=== PATIENT | female | born 1955 | race Caucasian/White ===

== ENCOUNTER 2018-08-19 01:08 | Outpatient (CLI) | payer OTHER, SELFPAY ==
--- NOTE | 2018-08-19 08:18 | DI.US_ITS ---
SYMPTOM/DIAGNOSIS: NAUSEA, FAMILY H/O AAA ABDOMEN ULTRASOUND: Comparison is made with CT dated 12 November 2015 and renal ultrasound dated 14 December 2014 The maximal transverse dimension of the abdominal aorta is 3.2 cm proximally. The aorta tapers normally. Some calcification is seen distally. There is no significant mural thrombus. Stones are again noted in the gallbladder. There are bilateral renal cysts. There is no evidence of hydronephrosis. The liver and spleen are normal in size and echogenicity. The pancreas is unremarkable. IMPRESSION: Cholelithiasis and bilateral renal cysts. There is no evidence of acute cholecystitis or abdominal aortic aneurysm.
[2018-08-19 09:26] LABS: HCT 41.6 % (36.0-46.0); HGB 14.1 g/dL (12.0-15.5); Mean Corp. HGB Concentration 33.9 g/dL (32.0-36.0); Mean Corpuscular Hemoglobin 30.1 pg (27.0-33.0); Mean Corpuscular Volume 88.9 fL (80-95); Mean Platelet Volume 8.8 fL (8.0-11.0); Platelet Count 314 x1000/uL (130-400); RBC 4.68 m/cumm (4.00-5.20); RBC Distribution Width 13.3 % (11.7-14.6); White Blood Cell Count 5.77 k/cumm (4.4-10.8)
[2018-08-19 10:24] LABS: ALT 16 U/L (12-78); AST 12 U/L (15-37); Alkaline Phosphatase 73 U/L (46-116); Anion Gap 9.9 mmol/L (3-11); BUN 9 mg/dL (7-18); Bilirubin, Total 0.7 mg/dL (0.2-1.0); CO2 29.1 mmol/L (21.0-32.0); CREATININE 0.72 mg/dL (0.55-1.02); Chloride 102 mmol/L (98-107); Glucose 77 mg/dL (70-100); Potassium 4.1 mmol/L (3.5-5.1); Sodium 141 mmol/L (136-145); Total Protein 7.1 g/dL (6.4-8.2)
== END 2018-08-19 01:28 ==
PROVIDERS: PCP Nurse Practitioner Family; Visit Provider Nurse Practitioner Family
DX: R10.9 Unspecified abdominal pain (principal); K80.20 Calculus of gallbladder without cholecystitis without obstruction; N28.1 Cyst of kidney, acquired; Z82.49 Family history of ischemic heart disease and other diseases of the circulatory system
CPT/HCPCS: 36415; 80053; 85027; 76700

== ENCOUNTER 2018-09-23 01:27 | Outpatient (CLI) | payer MEDICARE, OTHER, SELFPAY ==
--- NOTE | 2018-09-23 13:51 | DI.MAMMO_ITS ---
SYMPTOM/DIAGNOSIS: SCREENING, ANNUAL EXAM, Z00.00 MAMMOGRAMS: Mammograms were interpreted according to the usual protocol including computer analysis with CAD system, tomosynthesis and C view imaging. Comparison is made with exams from [id number]. The breasts are composed of scattered fibroglandular densities, breast density, Category C. No suspicious masses or suspicious microcalcifications are seen. There has been no significant change. IMPRESSION: Category 1C, negative mammogram. Yearly screening mammography is recommended. [facility] ASSESSMENT OF FINDINGS: Negative. Category 1. Patient will receive a letter notifying them of these results. Bi-RADS category C. The breasts are heterogeneously dense, which may obscure small masses.
== END 2018-09-23 01:47 ==
PROVIDERS: PCP Nurse Practitioner Family; Visit Provider Nurse Practitioner Family
DX: Z12.31 Encounter for screening mammogram for malignant neoplasm of breast (principal)
CPT/HCPCS: 77063; 77067

== ENCOUNTER 2019-09-22 10:55 | Outpatient (REF) | payer MEDICARE, BC, SELFPAY ==
[2019-09-22 12:01] LABS: HGB 14.2 g/dL (12.0-15.5); Mean Corp. HGB Concentration 33.8 g/dL (32.0-36.0); Mean Corpuscular Hemoglobin 30.1 pg (27.0-33.0); Mean Corpuscular Volume 89.2 fL (80-95); Mean Platelet Volume 9.3 fL (8.0-11.0); Platelet Count 330 x1000/uL (130-400); RBC 4.71 m/cumm (4.00-5.20); White Blood Cell Count 5.88 k/cumm (4.4-10.8)
[2019-09-22 12:10] LABS: ALT 19 U/L (14-59); AST 16 U/L (15-37); Albumin 3.9 g/dL (3.4-5.0); Alkaline Phosphatase 62 U/L (46-116); Anion Gap 7.4 mmol/L (3-11); BUN 9 mg/dL (7-18); Bilirubin, Total 0.5 mg/dL (0.2-1.0); CO2 28.6 mmol/L (21.0-32.0); CREATININE 0.68 mg/dL (0.55-1.02); Calcium 8.9 mg/dL (8.5-10.1); Calculated LDL 191 mg/dL; Chloride 105 mmol/L (98-107); Cholesterol 270 mg/dL (<200); Glucose 96 mg/dL (74-106); HDL Cholesterol 54 mg/dL (40-60); Potassium 4.4 mmol/L (3.5-5.1); Sodium 141 mmol/L (136-145); Total Protein 7.2 g/dL (6.4-8.2); Triglyceride 127 mg/dL (<150)
== END 2019-09-22 11:15 ==
LOC: NCHCN 10:55
PROVIDERS: PCP Nurse Practitioner Family; Visit Provider Nurse Practitioner Family
DX: E78.5 Hyperlipidemia, unspecified (principal)
CPT/HCPCS: 80053; 80061; 85027

== ENCOUNTER 2020-11-25 10:10 | Emergency (ER) | payer MEDICARE, BC, SELFPAY ==
[2020-11-25] VITALS (35 sets, daily range): BP systolic 120–190; BP diastolic 76–112; PULSE 67–88; RESP 11–27; TEMP 36.6; O2SAT 94–100
--- NOTE | 2020-11-25 10:00 | RT.EKG_ITS ---
APPROVED REPORT Exam: Resting ECG Patient Location: E HR:75 bpm ECG Measurements Heart Rate 75 AXIS HI 188 P 66 QRSd 80 QRS 5 QT 368 T 50 QTc 411 Conclusion Sinus rhythm...normal P axis, V-rate 60- 99
--- NOTE | 2020-11-25 10:45 | DI.CT_ITS ---
EXAM: CT BRAIN NECK CTA CLINICAL HISTORY: right visual loss and speech deficit intermittent. TECHNIQUE: Imaging Protocol: Axial CT angiography was performed with multi-slice acquisition and mu lti-planar and/or 3D reconstructions. CONTRAST MATERIAL: Intravenous: Omnipaque 350 Contrast volume:structured data in ml COMPARISON: CT ABD PELVIS WITH CONTRAST from 11/12/2015 FINDINGS: CT brain: There are no skull fractures nor fluid in the visualized paranasal sinuses and mastoid air cells. There is abnormal hyperdensity in the gyri of the left occipital lobe consistent with intra-axial hemorrhage which is probably slightly more so than petichial. No other areas of intra-axial hemorrhage. There is no blood within the ventricular system nor within the basal cisterns. CTA Neck W: Aortic arch anatomy: Conventional. Anterior circulation: Both common carotid arteries are patent with no evidence of significant stenosis in these vessels. A lso no significant stenosis at the carotid bifurcations and proximal internal carotid arteries and basil th internal carotid arteries of exhibit normal caliber in in the neck and skull base-carotid canals. Posterior circulation: Both vertebral arteries originated conventional fashion off the subclavian arteries. There is no sub clavian artery stenosis proximal to the vertebral artery takeoff points and there is no evidence of s tenosis at the origin of the vertebral arteries off of the subclavians. Both vertebral arteries asce nd with normal and approximately equal luminal diameters within the foramen transversarium. No evide nce of intraluminal thrombus nor dissection of these vessels. At the skull base both vertebral arter ies contribute to the formation of the basilar artery. CTA Brain W: Anterior circulation: Both internal carotid arteries are patent in the skull base-carotid canals as well as within the cave rnous sinuses. Both ophthalmic arteries are patent and originated conventional fashion off of the in tracavernous internal carotid arteries. The supraclinoid aspect of these vessels are patent and kenneth neurysmal. Both middle cerebral arteries are patent out to the sylvian fissure branches. No intralu mariana thrombus nor aneurysms. Both A1 segments are patent as are the anterior cerebral arteries. Th ere is no evidence of aneurysm at the level of the anterior communicating artery. Posterior circulation: Basilar artery is formed by both vertebral arteries at the skull base. Basilar artery ascends with n ormal luminal diameter and no evidence of intraluminal thrombus. Distally it gives off bilateral sup erior cerebellar arteries and above this level terminates as patent bilateral posterior cerebral wilfredo karen. In the left occipital lobe there are too numerous vessels which are consistent with probable vascula r malformation. IMPRESSION: 1. There is suggestion of vascular malformation and possible hemorrhage evident in the left occipital lobe. 2. No evidence of significant atherosclerotic disease in the carotid arteries and vertebral arteries in the neck. 3. No evidence of intraluminal thrombus within the intracranial arteries. No obvious aneurysms. Findings discussed by phone with the ER physician following completion of the study 11/25/2020 RADIATION DOSE DELIVERED: 1,767.88mGy.cm Total DLP DATA REPOSITORY: All CT scans at this facility are submitted to the National Radiology Data Registry (NRDR) Dose Index Registry (DIR) with the [employer] (A[employer]). RADIATION OPTIMIZATION: All CT scans at this facility use at least one of these dose optimization te chniques: automated exposure control; mA and/or kV adjustment per patient size (includes targeted exa ms where dose is matched to clinical indication); or iterative reconstruction.
--- NOTE | 2020-11-25 10:45 | DI.CT_ITS ---
EXAM: CT THORAX CTA CLINICAL HISTORY: intermittent chest pressure, fam hx aneurysm. TECHNIQUE: Imaging Protocol: CT angiography of the chest was performed using pulmonary embolus wan col. Multi planar reconstructions were performed. CONTRAST MATERIAL: Intravenous: Omnipaque 350 Contrast volume: 100 cc COMPARISON: CT CT BRAIN NECK CTA from 11/25/2020 FINDINGS: CHEST: PULMONARY ARTERIES: There are no intraluminal filling defects to suggest acute pulmonary emboli. LUNGS: No evidence of pulmonary infarction. Mild increased markings in the left lower lobe posterior basal segment and lingular segment of the left lung. No focal findings in the opposite-right lung. There are no pleural effusions. No significant focal findings in the trachea and mainstem bronchus. MEDIASTINUM: There is no hilar nor mediastinal adenopathy. Multiple nodules are noted in the thyroid gland. CARDIAC: Heart size is normal. There is no pericardial effusion.Caliber of the thoracic aorta is wit hin normal limits. There is no evidence of shift of the interventricular septum. PARTIALLY VISUALIZED UPPERMOST ABDOMEN: Partially included cysts seen in the left kidney. OSSEOUS: Thoracic scoliosis convex right. No lytic osseous lesions identified. IMPRESSION: 1. No evidence of acute pulmonary emboli. No evidence of pulmonary infarction.No pleural effusions. 2. Mild increased markings posterior basal segment left lower lobe and lingular segment left lung bas e. No focal right lung findings. No pleural effusions. No intrathoracic adenopathy. 3. Multiple nodules are incidentally noted in the thyroid gland. Scoliosis. RADIATION DOSE DELIVERED: LINK-TO-SR Total DLP DATA REPOSITORY: All CT scans at this facility are submitted to the National Radiology Data Registry (NRDR) Dose Index Registry (DIR) with the [employer] (ACR). RADIATION OPTIMIZATION: All CT scans at this facility use at least one of these dose optimization te chniques: automated exposure control; mA and/or kV adjustment per patient size (includes targeted exa ms where dose is matched to clinical indication); or iterative reconstruction.
[2020-11-25 10:49] LABS: Abs Immature Grans 0.02 10^3/uL (0.0-0.06); Absolute Basophil Count 0.07 10^3/uL (0.0-0.2); Absolute Eosinophil Count 0.07 10^3/uL (0.0-0.7); Absolute Lymphocyte Count 1.81 10^3/uL (1.2-3.4); Absolute Monocyte Count 0.48 10^3/uL (0.1-0.8); Absolute Neutrophil Count 3.96 10^3/uL (1.2-6.7); Basophils % 1.1; Eosinophils % 1.1; HCT 44.2 % (36.0-46.0); HGB 14.8 g/dL (11.2-15.7); Immature Grans % 0.3; Lymphocytes % 28.2; MCH 30.3 pg (27.0-33.0); MCHC 33.5 % (32.0-36.0); MCV 90.4 fL (80-95); MPV 8.8 fL (8.0-11.0); Monocytes % 7.5; Neutrophils % 61.8; Nucleated RBC 0 %; Platelet Count 321 10^3/uL (130-400); RBC 4.89 10^6/uL (3.93-5.22); RDW 12.7 % (11.7-14.6); RDW-SD 41.9 fL; WBC 6.41 10^3/uL (4.4-10.8)
[2020-11-25 11:03] LABS: ALT 21 U/L (14-59); AST 14 U/L (15-37); Albumin 4.1 g/dL (3.4-5.0); Alkaline Phosphatase 69 U/L (46-116); Anion Gap 5.9 mmol/L (3-11); BUN 11 mg/dL (7-18); Bilirubin, Total 0.6 mg/dL (0.2-1.0); CO2 30.1 mmol/L (21.0-32.0); CREATININE 0.7 mg/dL (0.55-1.02); Calcium 8.6 mg/dL (8.5-10.1); Chloride 104 mmol/L (98-107); Glucose 114 mg/dL (74-106); Potassium 3.6 mmol/L (3.5-5.1); Sodium 140 mmol/L (136-145); Total Protein 7.9 g/dL (6.4-8.2); Troponin I < 0.05 ng/mL (<0.06)
[2020-11-25] MEDS: Omnipaque 350 MG/ML 100 ML BTL IJ (11:25)
--- NOTE | 2020-11-25 11:28 | ED.GENADUL_ITS ---
Discharge Plan Disposition Patient Disposition: [facility] Condition: Critical Discharge Details Clinical Impression: Intracranial hemorrhage, Multiple thyroid nodules Primary Care Provider: David Valles ED Provider: Mike Thomas Home Meds and New Rx's Prescriptions: No Action No Known Home Meds RF: 0 Discharge Data Discharge Date/Time-TO BE ENTERED AT DEPARTURE: 11/25/20 14:09 Medical Decision Making 1135??65-year-old female presents from [facility] with intermittent right visual loss and speech deficit with headache over the past 1 week. Patient also with intermittent chest heaviness. She does not currently have any chest pain. Patient does have mild headache. Of note, patient does have positive family history of aneurysms in sibling and parent. Concern for intracranial aneurysm versus TIA versus other. Plan to obtain CT of the head and CTA of the head and neck. Screening ECG was reviewed and interpreted by me: Please see report, sinus rhythm 75 bpm, nondiagnostic. Consider aneurysm of the chest. Plan to obtain CTA of the chest. 1210 -- CT of the brain interpreted by radiology: Question left occipital hemorrhage CTA brain/neck interpreted by radiology: IMPRESSION: 1. There is suggestion of vascular malformation and possible hemorrhage evident in the left occipital lobe. 2. No evidence of significant atherosclerotic disease in the carotid arteries and vertebral arteries in the neck. 3. No evidence of intraluminal thrombus within the intracranial arteries. No obvious aneurysms. CTA of the chest interpreted by radiology: IMPRESSION: 1. No evidence of acute pulmonary emboli. No evidence of pulmonary infarction.No pleural effusions. 2. Mild increased markings posterior basal segment left lower lobe and lingular segment left lung base. No focal right lung findings. No pleural effusions. No intrathoracic adenopathy. 3. Multiple nodules are incidentally noted in the thyroid gland. Scoliosis. 1224 --I spoke with neurosurgeon production operations manager as well as Dr. Cruz, emergency physician, discussed ED presentation and course, patient will be excepted to the emergency department. Keppra 1 g was recommended. Blood pressure control recommended she maintain systolic blood pressure less than 140. Patient currently at goal blood pressure. HPI General Mode of arrival: ambulatory . Date/Time Provider Initiated Documentation: 11/25/20 10:22 . Limitations to Documentation: no limitations . Information obtained by: patient . HPI Narrative: 65-year-old female presents from [facility] with chief complaint of visual loss. Patient notes that she had right eyes visual loss 6 days ago. Visual loss was sudden onset, lasted approximately 30 minutes, was not complete loss of vision. She also had some mild word finding difficulties at that time as well that resolved. She did have mild frontal headache. The following day she had another episode of more severe frontal headache and more severe visual loss. She denies any speech deficits that day. Patient also notes that she experiences intermittent chest heaviness over the past few weeks. She does not have any this pain now or today. Patient does note that she bumped her head on car door as she was rushing to get into the car earlier in the day 6 days before. Related Data Home Medications Medication Instructions Recorded Confirmed Unknown [No Known Home Meds] 11/25/20 11/25/20 Allergies Allergy/AdvReac Type Severity Reaction Status Date / Time Dust Allergy Mild Uncoded 11/25/20 10:28 General Stated Complaint: GenMedical CISCO: 2 Review of Systems All systems reviewed & are unremarkable except as noted in HPI and below Constitutional Constitutional: Reports fatigue, Denies fever(s) and Reports headache(s) ENT Ears, Nose, Mouth, and Throat: Reports headache(s) Neurologic Neurologic: Reports as per HPI, Reports headache(s) and Denies sensory deficit Endocrine Endocrine: Reports fatigue PFSH Social History Smoking/Tobacco Use Status: Never Smoking risk assessment performed?: Yes Alcohol Intake: current Alcohol Intake frequency: a few times a month Alcohol type: wine Drug use: Never Substance use type: does not use Do you feel safe at home: Yes Do you feel safe in your relationship?: Yes Exam Const General: cooperative and no acute distress [facility] Head: normocephalic and atraumatic Mouth: moist mucous membranes Eyes Conjunctivae: normal conjunctivae Sclera: normal sclerae EOM: EOM intact bilaterally Neck Neck: trachea midline Resp Auscultation: clear to auscultation bilaterally, no rales, no rhonchi and no wheezes Cardio Jugular venous pressure: no JVD Rate: regular rate and not tachycardic Rhythm: regular rhythm GI Palpation: soft, not firm, no guarding, no masses, not rigid and nontender Skin General skin exam: no rashes or lesions noted Neuro General: patient alert, patient awake, patient oriented x3 and tone normal Cranial Nerves: CN's II-XI intact bilaterally and PERRL Cognition: normal cognition Speech: speech normal Motor: strength 5/5 throughout Sensory Exam: no sensory deficits noted Extrem General: no edema Psych Appearance: grossly normal Mental Status: mental status grossly normal Course Vital Signs Vital signs: Vital Signs Temperature 36.6 C 11/25/20 10:17 Pulse 78 11/25/20 10:17 Respiratory Rate 16 11/25/20 10:17 Blood Pressure 190/92 H 11/25/20 10:17 Pulse Oximetry 100 11/25/20 10:17 Temperature 36.6 C 11/25/20 10:17 Temperature Source Temporal Artery Scan 11/25/20 10:17 Pulse 67 11/25/20 10:31 Pulse 76 11/25/20 10:40 Respiratory Rate 18 11/25/20 11:13 Respiratory Effort Non-Labored 11/25/20 11:13 Respiratory Depth Normal 11/25/20 11:13 Respiratory Pattern Normal 11/25/20 11:13 Blood Pressure 155/85 H 11/25/20 10:31 Blood Pressure Mean 103 11/25/20 10:31 Blood Pressure Position Sitting 11/25/20 10:17 Pulse Oximetry 97 11/25/20 10:40 Oxygen Delivery Method Room Air 11/25/20 10:17 Oxygen Flow Rate 0 11/25/20 10:17 Pain Level 0 11/25/20 10:17 Lab/Test Results Lab/Test Results: Laboratory Tests Range/Units 11/25/20 11/25/20 10:20 10:20 WBC (4.4-10.8) 10^3/uL 6.41 RBC (3.93-5.22) 10^6/uL 4.89 Hgb (11.2-15.7) g/dL 14.8 Hct (36.0-46.0) % 44.2 MCV (80-95) fL 90.4 MCH (27.0-33.0) pg 30.3 MCHC (32.0-36.0) % 33.5 RDW (11.7-14.6) % 12.7 Plt Count (130-400) 10^3/uL 321 MPV (8.0-11.0) fL 8.8 Immature Gran % 0.3 Neutrophils % 61.8 Lymphocytes % 28.2 Monocytes % 7.5 Eosinophils % 1.1 Basophils % 1.1 Nucleated RBC % % 0 Absolute Neutrophils (1.2-6.7) 10^3/uL 3.96 Absolute Lymphocytes (1.2-3.4) 10^3/uL 1.81 Absolute Monocytes (0.1-0.8) 10^3/uL 0.48 Absolute Eosinophils (0.0-0.7) 10^3/uL 0.07 Absolute Basophils (0.0-0.2) 10^3/uL 0.07 Sodium (136-145) mmol/L 140 Potassium (3.5-5.1) mmol/L 3.6 Chloride (98-107) mmol/L 104 Carbon Dioxide (21.0-32.0) mmol/L 30.1 Anion Gap (3-11) mmol/L 5.9 BUN (7-18) mg/dL 11 Creatinine (0.55-1.02) mg/dL 0.7 Estimated GFR/1.73 m2 (mL/min/1.73m2) >= 60.00 Glucose (74-106) mg/dL 114 H Calcium (8.5-10.1) mg/dL 8.6 Total Bilirubin (0.2-1.0) mg/dL 0.6 AST (15-37) U/L 14 L ALT (14-59) U/L 21 Alkaline Phosphatase (46-116) U/L 69 Troponin I (<0.06) ng/mL < 0.05 Total Protein (6.4-8.2) g/dL 7.9 Albumin (3.4-5.0) g/dL 4.1
[2020-11-25] MEDS: levETIRAcetam 1,000 MG in Normal Saline 100 ML 400 MG IVPB (12:49)
== END 2020-11-25 14:09 | disposition short-term general hospital (02) ==
PROVIDERS: Emergency Provider Student in an Organized Health Care Education/Training Program; PCP Nurse Practitioner Family
DX: I61.1 Nontraumatic intracerebral hemorrhage in hemisphere, cortical (principal); H53.121 Transient visual loss, right eye; R47.89 Other speech disturbances; E04.1 Nontoxic single thyroid nodule
CPT/HCPCS: 36415; 70496; 70498; 71275; 80053; 93005; 96365; 99285; 84484; 85025; 93010; J1953; J3490

== ENCOUNTER → 2022-01-20 00:57 | Outpatient (CLI) | payer MEDICARE, BC, SELFPAY ==
--- NOTE | 2022-01-20 | DI.MAMMO_ITS ---
Exam(s) MAMMO SCREENING EXAM: MAMMO SCREENING CLINICAL HISTORY: SCREENING FOR BREAST CANCER Z12.39. TECHNIQUE: Bilateral full field digital CC and MLO mammographic images were obtained with 3D tomosyn thesis and utilizing computer aided detection (CAD). COMPARISON: Prior mammograms were reviewed, the most recent being September 2018. FINDINGS: There has been no significant change in the appearance and distribution the fibroglandular tissue. There are no new spiculated masses nor malignant appearing microcalcification groups. There is no significant architectural distortion nor skin thickening-retraction. IMPRESSION: No radiographic evidence of malignancy. BI-RADS Category 1 - Negative Breast Density - Category C - Heterogeneously dense Breast density Category C or D implies that the patient has dense breast tissue. Dense breast tissue can make it harder to find cancer on a mammogram. Dense breast tissue is also associated with an incr eased risk of breast cancer. This information about the result of the mammogram report was provided to the patient to raise their awareness. Use this report when you speak with the patient about their risks for breast cancer, which includes their family history. At that time, you may recommend additional screening tests (Ultrasoun d or MRI) as these tests may add significant information. A negative radiographic report should not delay biopsy if a dominant or clinically suspicious mass is present. Up to ten percent of cancers are not identified on mammography. A negative report may reinforce clinical impression. Adenosis and dense breasts may obscure an underlying neoplasm. False positive reports average 6 to 10%. Patient will receive a letter notifying them of these results.
== END ==
PROVIDERS: PCP Nurse Practitioner Family; Visit Provider Nurse Practitioner Family
DX: Z12.31 Encounter for screening mammogram for malignant neoplasm of breast (principal)
CPT/HCPCS: 77063; 77067

== ENCOUNTER 2024-01-28 14:01 | Outpatient (REF) | payer MEDICARE, BC, SELFPAY ==
[2024-01-28 15:35] LABS: HCT 44.4 % (36.0-46.0); HGB 15.1 g/dL (11.2-15.7); MCH 30.6 pg (27.0-33.0); MCV 90 fL (80-95); MPV 9.4 fL (8.0-11.0); Platelet Count 365 10^3/uL (130-400); RBC 4.94 10^6/uL (3.93-5.22); RDW 12.7 % (11.7-14.6); RDW-SD 41.7 fL; WBC 5.87 10^3/uL (4.4-10.8)
[2024-01-28 16:09] LABS: ALT 21 U/L (14-59); AST 18 U/L (15-37); Albumin 4.3 g/dL (3.4-5.0); Alkaline Phosphatase 72 U/L (46-116); Anion Gap 10.6 mmol/L (3-11); BUN 10 mg/dL (7-18); Bilirubin, Total 0.6 mg/dL (0.2-1.0); CO2 27.4 mmol/L (21.0-32.0); CREATININE 0.6 mg/dL (0.55-1.02); Calculated LDL 204 mg/dL (<100); Chloride 103 mmol/L (98-107); Cholesterol 289 mg/dL (<200); Glucose 84 mg/dL (74-106); HDL Cholesterol 62 mg/dL (40-60); Potassium 4.1 mmol/L (3.5-5.1); Sodium 141 mmol/L (136-145); Total Protein 7.5 g/dL (6.4-8.2); Triglyceride 116 mg/dL (<150)
== END 2024-01-28 14:02 | disposition home or self-care (01) ==
LOC: NCHCN 14:01
PROVIDERS: Visit Provider Physician Assistant
DX: E78.5 Hyperlipidemia, unspecified (principal)
CPT/HCPCS: 80053; 80061; 85027

== ENCOUNTER → 2024-02-01 01:04 | Outpatient (CLI) | payer MEDICARE, BC, SELFPAY ==
--- NOTE | 2024-02-01 | DI.DEXA_ITS ---
Exam(s) XR DEXA BONE DENSITY W/WO JAIME EXAM: XR DEXA BONE DENSITY W/WO JAIME CLINICAL HISTORY: Osteopenia, M85.88 TECHNIQUE: Hologic Horizon C densitometer analysis of left hip, lumbar spine and left forearm. Lat eral survey image of the thoracic and lumbar spine. COMPARISON: DX DEXA BONE DENSITY WITH JAIME from 11/23/2015 FINDINGS: Lateral view of the thoracic and lumbar spine shows no evidence of compression fractures. the upper thoracic vertebral bodies are not well seen. Bone mineral density measurements of the lumbar spine correspond to a total T-score of -1.4, in the osteopenic range. This represents a 2.8 percent decrease from 2016. Bone mineral density measurements of the left hip correspond to a total T-score of -1.4. This repre sents a 7.5 percent decrease compared with 2016.. The femoral neck T-score is -2.6, in the osteopor otic range. Femoral neck T-score was - 2.1 on the prior exam.. Theleft forearm bone mineral density measurements correspond to a T-score of the distal 3rd of -0.5 , in the normal range. This represents a 6.3 percent decrease compared with 2016.. IMPRESSION: Osteopenia of the lumbar spine. Mild osteoporosis of the hip. Normal bone mineral density of the fo rearm.
== END ==
PROVIDERS: Visit Provider Physician Assistant
DX: M85.88 Other specified disorders of bone density and structure, other site (principal); Z13.820 Encounter for screening for osteoporosis
CPT/HCPCS: 77080

== ENCOUNTER → 2024-02-15 03:26 | Outpatient (CLI) | payer MEDICARE, BC, SELFPAY ==
--- NOTE | 2024-02-15 | DI.MAMMO_ITS ---
Exam(s) MAMMO SCREENING EXAM: MAMMO SCREENING CLINICAL HISTORY: SCREENING MAMMO FOR BREAST CANCER Z12.31. TECHNIQUE: Bilateral full field digital CC and MLO mammographic images were obtained with 3D tomosyn thesis and utilizing computer aided detection (CAD). COMPARISON: Prior mammograms were reviewed. FINDINGS: Fibroglandular tissue is moderately dense There are no new findings in the right breast. In the left breast on the 3D MLO views there is a asymmetric density-subtle suggestion of nodule elizabeth uring approximately 8 by 6 mm, located 6 cm in from the nipple on the MLO view. Requires spot compre ssion view. There are no malignant-appearing microcalcifications in this region or elsewhere in either breast. There is no significant architectural distortion nor skin thickening-retraction. IMPRESSION: 1. No radiographic evidence of malignancy in right breast. 2. Asymmetric density-possible 8 x 6 mm nodule in the left breast. Spot compression MLO view as well as breast ultrasound recommended. BI-RADS Category 0 - Assessment Incomplete: Need additional imaging evaluation Breast Density - Category C - Heterogeneously dense Breast density Category C or D implies that the patient has dense breast tissue. Dense breast tissue can make it harder to find cancer on a mammogram. Dense breast tissue is also associated with an incr eased risk of breast cancer. This information about the result of the mammogram report was provided to the patient to raise their awareness. Use this report when you speak with the patient about their risks for breast cancer, which includes their family history. At that time, you may recommend additional screening tests (Ultrasoun d or MRI) as these tests may add significant information. A negative radiographic report should not delay biopsy if a dominant or clinically suspicious mass is present. Up to ten percent of cancers are not identified on mammography. A negative report may reinforce clinical impression. Adenosis and dense breasts may obscure an underlying neoplasm. False positive reports average 6 to 10%. Patient will receive a letter notifying them of these results.
== END ==
PROVIDERS: Visit Provider Physician Assistant
DX: Z12.31 Encounter for screening mammogram for malignant neoplasm of breast (principal)
CPT/HCPCS: 77063; 77067

== ENCOUNTER → 2024-02-29 00:10 | Outpatient (CLI) | payer MEDICARE, BC, SELFPAY ==
--- NOTE | 2024-02-29 | DI.US_ITS ---
Exam(s) MG MAMMO SCREEN CALL BACK UNI US BREAST LT COMPLETE EXAM: MG MAMMO SCREEN CALL BACK UNI CLINICAL HISTORY: ASYMMETRIC DENSITY-POSSIBLE NODULE LEFT BREAST R92.8 ABNL MAMMO. TECHNIQUE: Craniocaudal and mediolateral oblique spot compression digital Mammography views of the b reast with Tomosynthesis and breast ultrasound. COMPARISON: MG MG mammo screening from 09/23/2018 MG MG MAMMO SCREENING from 01/20/2022 MG MG MAMMO SCREENING from 02/15/2024 FINDINGS: Mammography/Tomosynthesis: Masses: None seen. Architectural Distortion: None seen. Microcalcifictions: No suspicious pleomorphic-type are seen. Skin Thickening/Nipple Retraction: None. Left breast US: Echotexture: Normal appearance of the glandular tissue. Shadowing: No suspicious foci. Cyst: None. Solid lesions: None seen. Ductal dilation: None. IMPRESSION: 1. No evidence of malignancy is noted. 2. Unless there is more urgent need, follow-up screening mammography is recommended, as per [employer] guidelines. 3. The findings were discussed with the patient on the date of the examination. BI-RADS Category 1 - Negative Breast Density - Category C - Heterogeneously dense A mammogram that demonstrates density of C or D indicates the patient's breast tissue is dense. Dense breast tissue is very common and is not abnormal, but dense breast tissue can make it harder to find cancer on a mammogram. Also, dense breast tissue may increase their breast cancer risk. This informa tion about the result of the mammogram report was provided to the patient to raise their awareness. U se this report when you speak with the patient about their risks for breast cancer, which includes th eir family history. At that time, you may recommend for more screening tests (Ultrasound or MRI) as t hey might be useful based on their risk. A negative radiographic report should not delay biopsy if a dominant or clinically suspicious mass is present. Up to ten percent of cancers are not identified on mammography. A negative report may reinforce clinical impression. Adenosis and dense breasts may obscure an underlying neoplasm. False positive reports average 6 to 10%. Patient will receive a letter notifying them of these results.
== END ==
PROVIDERS: Visit Provider Physician Assistant
DX: Z12.31 Encounter for screening mammogram for malignant neoplasm of breast (principal); R92.8 Other abnormal and inconclusive findings on diagnostic imaging of breast
CPT/HCPCS: 76642; 77063; 77067

== ENCOUNTER 2025-01-29 15:02 | Outpatient (CLI) | payer MEDICARE, BC, SELFPAY ==
[2025-01-29 15:44] LABS: Prothrombin Time 10.3 sec (9.1-11.1)
[2025-01-29 15:45] LABS: PTT Activated 23.3 sec (20.6-30.2)
== END 2025-01-29 15:03 | disposition home or self-care (01) ==
LOC: LBO 15:03
PROVIDERS: Visit Provider Student in an Organized Health Care Education/Training Program
DX: R10.11 Right upper quadrant pain (principal)
CPT/HCPCS: 36415; 85610; 85730

== ENCOUNTER 2025-01-30 00:09 | Outpatient (CLI) | payer MEDICARE, BC, SELFPAY ==
--- NOTE | 2025-01-30 | DI.US_ITS ---
Exam(s) US ABDOMEN LIMITED EXAM: US ABDOMEN LIMITED CLINICAL HISTORY: RUQ PAIN, R10.11,H/O GALLSTONES TECHNIQUE: Ultrasound abdomen performed using standard protocol. COMPARISON: US US ABDOMEN from 08/19/[address] THORAX CTA from 11/25/2020 FINDINGS: LIVER: Normal size. Normalechogenicity. No focal liver lesions are seen.. GALLBLADDER: Multiple stones are noted filling the gallbladder. no evidence of wall thickening. No pe richolecystic fluid identified. MACDONALD'S SIGN: Negative. BILIARY SYSTEM: No intrahepatic or extrahepatic biliary ductal dilation. RIGHT KIDNEY: Normal size. No evidence of renal calculi. No evidence of hydronephrosis. No suspicious renal mass. Several cysts. PANCREAS: Normal where visualized. ABDOMINAL AORTA AND IVC: Visualized portions normal caliber. ASCITES: None seen. IMPRESSION: Cholelithiasis. No evidence of acute cholecystitis. DATA REPOSITORY:
== END 2025-01-30 00:29 ==
LOC: DI 00:10
PROVIDERS: Visit Provider Student in an Organized Health Care Education/Training Program
DX: K80.80 Other cholelithiasis without obstruction
CPT/HCPCS: 76705

== ENCOUNTER 2025-02-03 14:24 | Outpatient (CLI) | payer MEDICARE, BC, SELFPAY ==
[2025-02-03 15:04] LABS: Abs Immature Grans 0.02 10^3/uL (0.0-0.06); Absolute Basophil Count 0.04 10^3/uL (0.0-0.2); Absolute Eosinophil Count 0.09 10^3/uL (0.0-0.7); Absolute Lymphocyte Count 1.75 10^3/uL (1.2-3.4); Absolute Monocyte Count 0.61 10^3/uL (0.1-0.8); Absolute Neutrophil Count 4.97 10^3/uL (1.2-6.7); Basophils % 0.5 %; Eosinophils % 1.2 %; HCT 42.1 % (36.0-46.0); HGB 14.2 g/dL (11.2-15.7); Immature Grans % 0.3 %; Lymphocytes % 23.4 %; MCH 30.2 pg (27.0-33.0); MCHC 33.7 % (32.0-36.0); MCV 90 fL (80-95); MPV 8.8 fL (8.0-11.0); Monocytes % 8.2 %; Neutrophils % 66.4 %; Platelet Count 310 10^3/uL (130-400); RDW 12.4 % (11.7-14.6); RDW-SD 41.1 fL; WBC 7.48 10^3/uL (4.4-10.8)
[2025-02-03 15:13] LABS: ESR < 1 mm/hr (0-30)
[2025-02-03 15:23] LABS: ALT 14 U/L (14-59); AST 17 U/L (15-37); Albumin 3.9 g/dL (3.4-5.0); Alkaline Phosphatase 70 U/L (46-116); Anion Gap 2.2 mmol/L (3-11); BUN 13 mg/dL (7-18); Bilirubin, Total 0.4 mg/dL (0.2-1.0); CO2 34.8 mmol/L (21.0-32.0); CREATININE 0.7 mg/dL (0.55-1.02); Calcium 8.8 mg/dL (8.5-10.1); Chloride 108 mmol/L (98-107); Estimated GFR 92.41 (mL/min/1.73m2); Glucose 101 mg/dL (74-106); Lipase 64 U/L (<78); Potassium 3.9 mmol/L (3.5-5.1); Sodium 145 mmol/L (136-145); Total Protein 7.2 g/dL (6.4-8.2)
[2025-02-03 15:24] LABS: C-Reactive Protein < 0.50 mg/dL (<or=0.5)
== END 2025-02-03 14:25 | disposition home or self-care (01) ==
PROVIDERS: Visit Provider Student in an Organized Health Care Education/Training Program
DX: R10.11 Right upper quadrant pain (principal)
CPT/HCPCS: 36415; 80053; 83690; 85652; 85025; 86140

== ENCOUNTER 2025-04-27 10:15 | Outpatient (CLI) | payer MEDICARE, BC, SELFPAY ==
--- NOTE | 2025-04-27 | DI.MAMMO_ITS ---
Exam(s) MAMMO SCREENING EXAM: MAMMO SCREENING CLINICAL HISTORY: Screening, Z12.31. TECHNIQUE: Bilateral full field digital CC and MLO mammographic images were obtained with 3D tomosynthesis and utilizing computer aided detection (CAD). COMPARISON: Prior mammograms were reviewed. FINDINGS: No new right breast findings. In the left breast on the MLO view there is an asymmetric density measuring 5 x 4mm on the MLO view, approximately 3 cm in from the nipple, more evident than on prior mammograms. This is different than the finding discussed on the screening mammogram 1 year ago. There are no malignant-appearing microcalcification groups in this region or elsewhere in either breast There is no significant architectural distortion nor skin thickening-retraction. IMPRESSION: 1. No radiographic evidence of malignancy in right breast. 2. Possible 5 x 4 mm nodule in the left breast. Spot compression MLO view and ultrasound recommended. BI-RADS Category 0 - Incomplete: Need additional imaging evaluation Breast Density - Category C - The breast are heterogeneously dense, which may obscure small masses. Breast density Category C or D implies that the patient has dense breast tissue. Dense breast tissue can make it harder to find cancer on a mammogram. Dense breast tissue is also associated with an increased risk of breast cancer. This information about the result of the mammogram report was provided to the patient to raise their awareness. Use this report when you speak with the patient about their risks for breast cancer, which includes their family history. At that time, you may recommend additional screening tests (Ultrasound or MRI) as these tests may add significant information. A negative radiographic report should not delay biopsy if a dominant or clinically suspicious mass is present. Up to ten percent of cancers are not identified on mammography. A negative report may reinforce clinical impression. Adenosis and dense breasts may obscure an underlying neoplasm. False positive reports average 6 to 10%. Patient will receive a letter notifying them of these results.
== END 2025-04-27 10:35 ==
LOC: DI 10:16
PROVIDERS: PCP Physician Assistant; Visit Provider Physician Assistant
DX: Z12.31 Encounter for screening mammogram for malignant neoplasm of breast (principal); R92.333 Mammographic heterogeneous density, bilateral breasts
CPT/HCPCS: 77063; 77067

== ENCOUNTER 2025-05-06 01:12 | Outpatient (CLI) | payer MEDICARE, BC, SELFPAY ==
--- NOTE | 2025-05-06 | DI.US_ITS ---
Exam(s) MG MAMMO SCREEN CALL BACK UNI US BREAST LT LIMITED EXAM: MG MAMMO SCREEN CALL BACK UNI and U/S breast LT limited CLINICAL HISTORY: F/U MAMMO, R92.8,? LT BREAST NODULE, LT ASYMMETRIC DENSITY. TECHNIQUE: Craniocaudal and mediolateral oblique Full Field Digital Mammography views of the left breast with Computer Aided Diagnosis followed by Tomosynthesis and limited left breast ultrasound. COMPARISON: Comparison is made with prior examinations. FINDINGS: Mammography/Tomosynthesis: Masses/Architectural Distortion: The area of concern does not persist on the additional views. No suspicious masses or areas of architectural distortion are present. Microcalcifictions: No suspicious pleomorphic-type are seen. Skin Thickening/Nipple Retraction: None. Limited left breast US: Echotexture: Normal appearance of the glandular tissue. Shadowing: No suspicious foci. Cyst: None. Solid lesions: None seen. Ductal dilation: None. IMPRESSION: 1. No evidence of malignancy is noted. 2. Unless there is more urgent need, follow-up screening mammography is recommended, as per [employer] [place] [employer] guidelines. 3. The findings were discussed with the patient on the date of the examination. BI-RADS Category 1 - Negative Breast Density - Category C - The breast are heterogeneously dense, which may obscure small masses. Breast density Category C or D implies that the patient has dense breast tissue. Dense breast tissue can make it harder to find cancer on a mammogram. Dense breast tissue is also associated with an increased risk of breast cancer. This information about the result of the mammogram report was provided to the patient to raise their awareness. Use this report when you speak with the patient about their risks for breast cancer, which includes their family history. At that time, you may recommend additional screening tests (Ultrasound or MRI) as these tests may add significant information. A negative radiographic report should not delay biopsy if a dominant or clinically suspicious mass is present. Up to ten percent of cancers are not identified on mammography. A negative report may reinforce clinical impression. Adenosis and dense breasts may obscure an underlying neoplasm. False positive reports average 6 to 10%. Patient will receive a letter notifying them of these results.
== END 2025-05-06 01:32 ==
LOC: DI 01:12
PROVIDERS: PCP Physician Assistant; Visit Provider Physician Assistant
DX: Z12.31 Encounter for screening mammogram for malignant neoplasm of breast (principal); R92.8 Other abnormal and inconclusive findings on diagnostic imaging of breast
CPT/HCPCS: 76642; 77063; 77067

== ENCOUNTER 2025-07-22 10:39 | Outpatient (CLI) | payer MEDICARE, BC, SELFPAY ==
[2025-07-22 11:00] LABS: ALT 14 U/L (10-49); AST 23 U/L (<34); Albumin 4.7 g/dL (3.4-5.0); Alkaline Phosphatase 66 U/L (46-116); Anion Gap 6.6 mmol/L (3-11); BUN 12 mg/dL (9-23); Bilirubin, Total 0.70 mg/dL (0.2-1.2); CO2 28.4 mmol/L (20.0-31.0); Calcium 8.8 mg/dL (8.3-10.6); Chloride 108 mmol/L (98-107); Cholesterol 183 mg/dL (<200); Glucose 89 mg/dL (74-106); HDL Cholesterol 60 mg/dL (>40); Potassium 3.9 mmol/L (3.5-5.1); Sodium 143 mmol/L (136-145); Total Protein 7.4 g/dL (5.7-8.2)
== END 2025-07-22 10:40 | disposition home or self-care (01) ==
LOC: LBO 10:40
PROVIDERS: PCP Physician Assistant; Visit Provider Physician Assistant
DX: E78.5 Hyperlipidemia, unspecified (principal)
CPT/HCPCS: 36415; 80053; 80061

== ENCOUNTER 2025-08-18 15:29 | Outpatient (REF) | payer MEDICARE, BC, SELFPAY ==
[2025-08-18 16:05] LABS: HCT 41.8 % (36.0-46.0); HGB 14.0 g/dL (11.2-15.7); MCH 30.5 pg (27.0-33.0); MCHC 33.5 % (32.0-36.0); MCV 91 fL (80-95); MPV 9.4 fL (8.0-11.0); Platelet Count 309 10^3/uL (130-400); RBC 4.59 10^6/uL (3.93-5.22); RDW 12.6 % (11.7-14.6); RDW-SD 41.7 fL; WBC 14.30 10^3/uL (4.4-10.8)
[2025-08-18 16:22] LABS: ALT 13 U/L (10-49); AST 21 U/L (<34); Albumin 4.4 g/dL (3.2-5.0); Alkaline Phosphatase 70 U/L (46-116); Anion Gap 10.5 mmol/L (3-11); BUN 10 mg/dL (9-23); Bilirubin, Total 0.9 mg/dL (0.2-1.2); CO2 29.5 mmol/L (20.0-31.0); Calcium 8.9 mg/dL (8.3-10.6); Chloride 103 mmol/L (98-107); Glucose 116 mg/dL (74-106); Potassium 3.4 mmol/L (3.5-5.1); Sodium 143 mmol/L (136-145); Total Protein 7.0 g/dL (5.7-8.2)
== END 2025-08-18 15:30 | disposition home or self-care (01) ==
LOC: NCHCN 15:29
PROVIDERS: PCP Physician Assistant; Visit Provider Physician Assistant
DX: R10.84 Generalized abdominal pain (principal)
CPT/HCPCS: 80053; 85027